=== PATIENT | male | born 1980 | race Hispanic/Latino ===

== ENCOUNTER 2019-04-09 08:26 | Emergency (ER) | payer SELFPAY ==
[2019-04-09 09:02] LABS: Protime INR 1.15
[2019-04-09 09:06] LABS: Absolute Lymphocytes (CBC) 0.7 K/uL (0.7-4.9); Basophils % 0.5 % (0-1.3); Hematocrit 44.5 % (39.6-49.0); Lymphocytes % 7.7 % (15.3-44.8); MPV 8.2 fL (7.6-11.3); Monocytes % 9.6 % (3.3-12.3); RBC Red Blood Cell Count 4.58 M/uL (4.33-5.43)
[2019-04-09 09:26] LABS: ALT/SGPT 38 U/L (12-78); AST/SGOT 27 U/L (15-37); Albumin 3.7 g/dL (3.4-5.0); Alkaline Phosphatase 77 U/L (45-117); BUN Blood Urea Nitrogen 12 mg/dL (7-18); Bicarbonate 27 mmol/L (21-32); Bilirubin Direct 0.2 mg/dL (0-0.2); Bilirubin Total 0.5 mg/dL (0.2-1.0); Glucose Level 123 mg/dL (74-106); Potassium 3.5 mmol/L (3.5-5.1); Protein, Total 7.1 g/dL (6.4-8.2); Sodium Level 144 mmol/L (136-145)
[2019-04-09 11:45] LABS: Barbiturates NEGATIVE (NEGATIVE); Benzodiazepines NEGATIVE (NEGATIVE); Cocaine NEGATIVE (NEGATIVE); Methadone NEGATIVE (NEGATIVE); Opiates NEGATIVE (NEGATIVE); Phencyclidine NEGATIVE (NEGATIVE); THC Cannibis NEGATIVE (NEGATIVE)
[2019-04-09 12:24] LABS: METHAMPHETAM POSITIVE (NEGATIVE)
[2019-04-09 12:54] LABS: Urine Blood NEGATIVE (NEG); Urine Glucose NEGATIVE (NEG); Urine Protein 2+ (NEG); Urine Specific Gravity >1.030 (1.005-1.030); Urine pH 5.5 (5.0-7.0)
--- NOTE | 2019-04-09 13:50 | EDPHYS ---
Physician Documentation [facility] Name: Travon Alvarez Age: 38 yrs Sex: Male : 1980 Arrival Date: 04/09/2019 Time: 08:27 Bed 7 Private MD: ED Physician Rishi Raymundo HPI: 04/09 08:59 This 38 yrs old Male presents to ER via EMS with complaints of Drug Abuse. kb 09:01 The patient presents to the emergency department with depression, a history of kb substance abuse, suicide ideation, but the patient has no formulated plan. Onset: The symptoms/episode began/occurred 6 day(s) ago. Associated signs and symptoms: Pertinent positives; depression, substance abuse, suicide ideation. Severity of symptoms: At their worst the symptoms were moderate in the emergency department the symptoms are unchanged. The patient has experienced similar episodes in the past. The patient has not recently seen a physician. Pt states "I started having feelings of not wanting to be here again 5 or 6 days ago. I start doing drugs when I have those feelings." States he felt like there was no need to live 5 or 6 days ago, but now is just feeling depressed. Pt states he is no longer suicidal. Pt denies being homicidal. Reports he has been doing drugs for the past 5-6 days. Had a dream last night that his mom was in a car accident and it was very real to him. STates he ran outside of his house trying to escape the dream and got picked up by [employer]. They made him come to the ER because he was on drugs. Denies any medical complaint. States he does want help for the depression. States he makes himself get up everyday, but it is hard. Historical: - Allergies: 08:30 No Known Allergies; hb - Home Meds: 08:30 None [Active]; hb - PMHx: 08:30 Bipolar disorder; Anxiety; hb - PSHx: 08:30 None; hb - Immunization history:: Adult Immunizations up to date. - Social history:: Smoking status: Patient uses tobacco products, smokes one pack cigarettes per day. Patient uses street drugs, cocaine, Methamphetamine (Meth). - Ebola Screening: : No symptoms or risks identified at this time. ROS: 09:11 Constitutional: Negative for fever, chills, and weight loss, Eyes: Negative for injury, kb pain, redness, and discharge, ENT: Negative for injury, pain, and discharge, Neck: Negative for injury, pain, and swelling, Cardiovascular: Negative for chest pain, palpitations, and edema, Respiratory: Negative for shortness of breath, cough, wheezing, and pleuritic chest pain, Abdomen/GI: Negative for abdominal pain, nausea, vomiting, diarrhea, and constipation, Back: Negative for injury and pain, : Negative for injury, bleeding, discharge, and swelling, MS/Extremity: Negative for injury and deformity, Skin: Negative for injury, rash, and discoloration, Neuro: Negative for headache, weakness, numbness, tingling, and seizure. 09:11 Psych: Positive for depression, drug dependence, suicidal ideation. Exam: 09:11 Constitutional: This is a well developed, well nourished patient who is awake, alert, kb and in no acute distress. Head/Face: Normocephalic, atraumatic. Eyes: Pupils equal round and reactive to light, extra-ocular motions intact. Lids and lashes normal. Conjunctiva and sclera are non-icteric and not injected. Cornea within normal limits. Periorbital areas with no swelling, redness, or edema. ENT: Nares patent. No nasal discharge, no septal abnormalities noted. Tympanic membranes are normal and external auditory canals are clear. Oropharynx with no redness, swelling, or masses, exudates, or evidence of obstruction, uvula midline. Mucous membranes moist. Neck: Trachea midline, no thyromegaly or masses palpated, and no cervical lymphadenopathy. Supple, full range of motion without nuchal rigidity, or vertebral point tenderness. No Meningismus. Chest/axilla: Normal chest wall appearance and motion. Nontender with no deformity. No lesions are appreciated. Cardiovascular: Regular rate and rhythm with a normal S1 and S2. No gallops, murmurs, or rubs. Normal PMI, no JVD. No pulse deficits. Respiratory: Lungs have equal breath sounds bilaterally, clear to auscultation and percussion. No rales, rhonchi or wheezes noted. No increased work of breathing, no retractions or nasal flaring. Abdomen/GI: Soft, non-tender, with normal bowel sounds. No distension or tympany. No guarding or rebound. No evidence of tenderness throughout. Back: No spinal tenderness. No costovertebral tenderness. Full range of motion. Skin: Warm, dry with normal turgor. Normal color with no rashes, no lesions, and no evidence of cellulitis. MS/ Extremity: Pulses equal, no cyanosis. Neurovascular intact. Full, normal range of motion. Neuro: Awake and alert, GCS 15, oriented to person, place, time, and situation. Cranial nerves II-XII grossly intact. Motor strength 5/5 in all extremities. Sensory grossly intact. Cerebellar exam normal. Normal gait. 09:11 Psych: Behavior/mood is cooperative, anxious, depressed, Affect is animated, Oriented to person, place, time, Patient has no thoughts/intents to harm self or others. Judgement / Insight is normal. Memory is normal. Delusions/hallucinations are not present. Vital Signs: 08:28 BP 148 / 86; Pulse 103; Resp 16; Temp 98.5; Pulse Ox 100% on R/A; Weight 79.38 kg; hb Height 5 ft. 9 in. (175.26 cm); Pain 0/10; 08:32 BP 128 / 63; Pulse 82; Resp 16; Pulse Ox 99% ; sv 08:28 Body Mass Index 25.84 (79.38 kg, 175.26 cm) hb MDM: 08:34 Patient medically screened. kb 09:11 Data reviewed: vital signs, nurses notes. Data interpreted: Pulse oximetry: on room air kb is 99 %. Interpretation: normal. 13:12 ED course: Radha senior here for evaluation. kb 13:45 Counseling: I had a detailed discussion with the patient and/or guardian regarding: the kb historical points, exam findings, and any diagnostic results supporting the discharge/admit diagnosis, lab results, the need for outpatient follow up, a psychiatrist, to return to the emergency department if symptoms worsen or persist or if there are any questions or concerns that arise at home. ED course: Pt denies suicidal or homicidal ideations. [facility] screener agrees with outpatient treatment. Pt given information for outpatient treatment and therapy. Pt to follow up. 04/09 08:41 Order name: Acetaminophen; Complete Time: 09:42 kb 04/09 08:41 Order name: Basic Metabolic Panel kb 04/09 08:41 Order name: CBC with Diff; Complete Time: 09:12 kb 04/09 08:41 Order name: ETOH Level; Complete Time: 09:20 kb 04/09 08:41 Order name: Hepatic Function; Complete Time: 09:42 kb 04/09 08:41 Order name: PT-INR; Complete Time: 09:12 kb 04/09 08:41 Order name: Ptt, Activated; Complete Time: 09:12 kb 04/09 08:41 Order name: Salicylate; Complete Time: 09:21 kb 04/09 08:41 Order name: Urine Drug Screen; Complete Time: 12:25 kb 04/09 08:41 Order name: IV Saline Lock; Complete Time: 08:50 kb 04/09 08:42 Order name: Basic Metabolic Panel; Complete Time: 09:42 EDMS 04/09 11:24 Order name: Urine Dipstick--Ancillary (enter results); Complete Time: 12:55 ag 04/09 08:41 Order name: Labs collected and sent; Complete Time: 08:50 kb 04/09 08:41 Order name: Urine Dipstick-Ancillary (obtain specimen); Complete Time: 13:55 kb Administered Medications: No medications were administered Disposition: 04/09/19 13:50 Discharged to Home. Impression: Drug Abuse, Depression. - Condition is Stable. - Discharge Instructions: Stimulant Use Disorder-Methamphetamines, Major Depressive Disorder, [id number]. - Medication Reconciliation Form, Thank You Letter, Antibiotic Education, Prescription Opioid Use form. - Follow up: Private Physician; When: 2 - 3 days; Reason: Recheck today's complaints, Continuance of care, Re-evaluation by your physician. Follow up: Emergency Department; When: As needed; Reason: Worsening of condition. Addendum: 04/15/2019 16:44 Co-signature as Attending Physician, Rishi Raymundo MD I agree with the assessment and c nance plan of care. Signatures: Dispatcher [employer] EDMilagros Hunt, YAYA KENDRICK-Mi Roque RN RN sv Anderson, Corey, MD MD cha Baxter, Heather RN RN Corrections: (The following items were deleted from the chart) 04/09 14:04 13:50 04/09/2019 13:50 Discharged to Home. Impression: Drug Abuse; Depression. sv Condition is Stable. Discharge Instructions: Stimulant Use Disorder-Methamphetamines, Major Depressive Disorder, [id number]. Forms are Medication Reconciliation Form, Thank You Letter, Antibiotic Education, Prescription Opioid Use. Follow up: Private Physician; When: 2 - 3 days; Reason: Recheck today's complaints, Continuance of care, Re-evaluation by your physician. Follow up: Emergency Department; When: As needed; Reason: Worsening of condition. kb
--- NOTE | 2019-04-09 13:50 | ER ---
Nurse's Notes [facility] Name: Travon Alvarez Age: 38 yrs Sex: Male : 1980 Arrival Date: 04/09/2019 Time: 08:27 Bed 7 Private MD: Diagnosis: Drug Abuse;Depression Presentation: 04/09 08:23 Presenting complaint: EMS states: called to go to the local half-way for cocaine use, pt sv was arrested for PI and informed PD that he took about $20 worth of cocaine and was diaphoretic. Pt denies CP or SOB. BP 150/80 BS-157 98.2. Transition of care: patient was not received from another setting of care. Onset of symptoms was April 09, 2019. Risk Assessment: Do you want to hurt yourself or someone else? Patient reports no desire to harm self or others. Initial Sepsis Screen: Does the patient meet any 2 criteria? HR > 90 bpm. No. Patient's initial sepsis screen is negative. Does the patient have a suspected source of infection? No. Patient's initial sepsis screen is negative. Care prior to arrival: IV initiated. 18 GA, in the right antecubital area, Glucose check: 157. 08:23 Method Of Arrival: EMS: [facility] sv 08:23 Acuity: NOA 3 sv Historical: - Allergies: 08:30 No Known Allergies; hb - Home Meds: 08:30 None [Active]; hb - PMHx: 08:30 Bipolar disorder; Anxiety; hb - PSHx: 08:30 None; hb - Immunization history:: Adult Immunizations up to date. - Social history:: Smoking status: Patient uses tobacco products, smokes one pack cigarettes per day. Patient uses street drugs, cocaine, Methamphetamine (Meth). - Ebola Screening: : No symptoms or risks identified at this time. Screenin:30 Abuse screen: Denies threats or abuse. Denies injuries from another. Nutritional hb screening: No deficits noted. Tuberculosis screening: No symptoms or risk factors identified. Fall Risk None identified. Assessment: 08:31 General: Appears in no apparent distress. Behavior is cooperative, anxious. Pain: hb Denies pain. Neuro: Level of Consciousness is awake, alert, obeys commands, Oriented to person, place, time, situation. Cardiovascular: Capillary refill < 3 seconds Patient's skin is warm and dry. Respiratory: Airway is patent Respiratory effort is even, unlabored, Respiratory pattern is regular, symmetrical. GI: No signs and/or symptoms were reported involving the gastrointestinal system. : No signs and/or symptoms were reported regarding the genitourinary system. EENT: No signs and/or symptoms were reported regarding the EENT system. Derm: Skin is intact, is healthy with good turgor, Skin is pink, warm \T\ dry. Musculoskeletal: No signs and/or symptoms reported regarding the musculoskeletal system. 09:50 Reassessment: Patient appears in no apparent distress at this time. No changes from sv previously documented assessment. 11:40 Reassessment: Patient appears in no apparent distress at this time. No changes from sv previously documented assessment. Patient and/or family updated on plan of care and expected duration. Pain level reassessed. Patient is alert, oriented x 3, equal unlabored respirations, skin warm/dry/pink. [facility] livestock sales representative called to get an update on the pt. Stated she would be coming to speak with the pt. 12:30 Reassessment: Patient appears in no apparent distress at this time. No changes from sv previously documented assessment. Patient and/or family updated on plan of care and expected duration. Pain level reassessed. Patient is alert, oriented x 3, equal unlabored respirations, skin warm/dry/pink. 13:25 Reassessment: [facility] livestock sales representative at the bedside speaking with the pt. sv 14:03 Reassessment: Patient appears in no apparent distress at this time. No changes from sv previously documented assessment. Patient and/or family updated on plan of care and expected duration. Pain level reassessed. Patient is alert, oriented x 3, equal unlabored respirations, skin warm/dry/pink. Vital Signs: 08:28 BP 148 / 86; Pulse 103; Resp 16; Temp 98.5; Pulse Ox 100% on R/A; Weight 79.38 kg; hb Height 5 ft. 9 in. (175.26 cm); Pain 0/10; 08:32 BP 128 / 63; Pulse 82; Resp 16; Pulse Ox 99% ; sv 08:28 Body Mass Index 25.84 (79.38 kg, 175.26 cm) ED Course: 08:27 Patient arrived in ED. sv 08:30 Arm band placed on. hb 08:30 Patient has correct armband on for positive identification. Placed in gown. Bed in low hb position. Call light in reach. Side rails up X 1. 08:30 Maintain EMS IV. Dressing intact. Good blood return noted. Site clean \T\ dry. Gauge \T\ hb site: 18g RIGHT AC. 08:31 Rishi Raymundo MD is Attending Physician. benjamin 08:31 Triage completed. sv 08:34 Milagros Mandel FNP-C is [facility]. kb 08:49 Mi Sutton RN is Primary Nurse. sv 08:50 Basic Metabolic Panel Sent. sv 08:50 Initial lab(s) drawn, by pa, sent to lab. sv 09:44 [facility] was called to come and assess the patient. ag 11:28 Urine Drug Screen Sent. kj1 14:04 No provider procedures requiring assistance completed. IV discontinued, intact, sv bleeding controlled, No redness/swelling at site. Pressure dressing applied. Administered Medications: No medications were administered Outcome: 13:50 Discharge ordered by . kb 14:03 Discharged to home ambulatory. sv 14:03 Condition: stable 14:03 Discharge instructions given to patient, Instructed on discharge instructions, follow up and referral plans. Demonstrated understanding of instructions, follow-up care. 14:04 Patient left the ED. sv Signatures: Milagros Mandel FNP-C FNP-Mi Roque, RN RN Rishi Rosen MD MD cha Gallardo, Ana ag Baxter, Heather, RN RN hb Jackson, Kandis [email or web address]
== END 2019-04-09 14:04 | disposition home or self-care (01) ==
LOC: ER 08:26
DX: F19.20 Other psychoactive substance dependence, uncomplicated (principal); R45.851 Suicidal ideations; F31.9 Bipolar disorder, unspecified; F17.210 Nicotine dependence, cigarettes, uncomplicated
CPT/HCPCS: 36415; 80048; 80076; 80307; 80320; 80329; 81003; 85025; 85610; 85730; 99283